=== PATIENT | female | born 1995 | race Caucasian/White ===

== ENCOUNTER 2022-04-10 12:28 | Emergency (ER) | payer MEDICARE, SELFPAY ==
--- NOTE | ~2022-04-10 | XR_ITS ---
EXAMINATION: XR hand RT min 3V DATE: 04/10/2022 13:01 INDICATION: Right hand pain. TECHNIQUE: 3 views of right hand were obtained. COMPARISON: None. FINDINGS: Bone alignment is normal. No fracture. Joint spaces are well maintained. IMPRESSION: 1. Normal right hand. Reviewed, dictated and finalized at location A. IMPRESSION: 1. Normal right hand.
[2022-04-10 12:38] VITALS: BP 119/58; PULSE 63; RESP 18; TEMP 37; O2SAT 98
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
== END 2022-04-10 13:30 | disposition home or self-care (01) ==
PROVIDERS: Emergency Provider Registered Nurse
DX: S60.221A Contusion of right hand, initial encounter (principal); X50.9XXA Other and unspecified overexertion or strenuous movements or postures, initial encounter; F17.210 Nicotine dependence, cigarettes, uncomplicated
CPT/HCPCS: 73130; 99213; G0463

== ENCOUNTER 2022-06-21 14:18 | Emergency (ER) | payer SELFPAY ==
[2022-06-21 14:24] VITALS: BP 131/71; PULSE 91; RESP 16; TEMP 37.1; O2SAT 99
[2022-06-21 14:29] VITALS: BP 131/71; PULSE 97; RESP 16; TEMP 36.9; O2SAT 99
--- NOTE | 2022-06-21 14:30 | ED.SKABFB ---
HPI - Skin/Abscess/Foreign Bdy General Chief complaint: Allergic Reaction Stated complaint: possible rash on back Time Seen by Provider: 06/21/22 14:29 Source: patient Mode of arrival: ambulatory Limitations: no limitations History of Present Illness HPI narrative: 27-year-old female presents to the ER with a 2 day history of -- maculopapular rash on her back which is itchy. -- healed laceration over the left wrist which came on after she cut herself with a glass piece complaint: rash Onset (ago): day(s) ( present for the past 2 days) Tetanus up to date: yes Location: back Severity: mild Quality: pruritic Relieving factors: none Exacerbating factors: none Associated symptoms: denies other symptoms Treatments prior to arrival: none Related Data Allergies Allergy/AdvReac Type Severity Reaction Status Date / Time No Known Allergies Allergy Verified 06/21/22 14:35 Review of Systems Review of Systems: All systems reviewed & are unremarkable except as noted in HPI and below Constitutional: Constitutional: Reports as per HPI and Reports no additional constitutional complaints Eyes: Eyes: Reports as per HPI and Reports no additional eye complaints ENT: Reports system reviewed and no additional complaints, except as documented and Reports as per HPI Cardiovascular: Cardiovascular: Reports as per HPI and Reports no additional cardiovascular complaints Respiratory: Respiratory: Reports as per HPI and Reports no additional respiratory complaints Gastrointestinal: Gastrointestinal: Reports as per HPI and Reports no additional gastrointestinal complaints Genitourinary: Genitourinary: Reports no additional female genitourinary complaints and Reports as per HPI Musculoskeletal: Musculoskeletal: Reports no additional musculoskeletal complaints and Reports as per HPI Integumentary/Breasts: Skin/Breast: Reports system reviewed and no additional complaints, except as docu and Reports as per HPI Comments: maculopapular rash on her back Neurologic: Reports system reviewed and no additional complaints, except as documented and Reports as per HPI Psychiatric: Psychiatric: Reports no additional psychiatric complaints and Reports as per HPI Endocrine: Endocrine: Reports no additional endocrine complaints and Reports as per HPI Hematologic/Lymphatic: Hematologic/Lymphatic: Reports no additional hematologic/lymphatic complaints and Reports as per HPI Allergic/Immunologic: Allergic/Immunologic: Reports no additional allergic/immunologic complaints and Reports as per HPI PMFSH Surgical History Surgical History History of cholecystectomy Social History Social History Smoking packs per day: 1.5 Smoking cigarettes per day: 30.0 Smoking status: Current every day smoker Alcohol intake: current Alcohol use details: social Substance use type: does not use Gender identity (if verbalized by the patient): Female Exam Const: General: no acute distress Nutritional Appearance: well nourished Orientation/consciousness: patient oriented x3 Limitations: no limitations HENMT: Head: normal to inspection Ears: external ears normal Face/Nose/Sinus: Normal external nose present Face and sinus: normal facial exam Mouth: Yes Normal oral and palatal mucosa present Throat: posterior oropharynx normal Eyes: Conjunctivae: conjunctivae normal Pupils: Equal, round and reactive pupils present Direct Ophthalmoscopy: no photophobia Neck: Neck: normal visual inspection, no lymphadenopathy and no meningeal signs Chest: Chest palpation & inspection: normal inspection of the chest Resp: Effort & Inspection: normal respiratory effort Auscultation: clear to auscultation bilaterally Cardio: Rate: regular rate Rhythm: regular rhythm GI: Auscultation: normal bowel sounds Other: no tenderness/ rigidity /rebound. : Gen
[2022-06-21] MEDS: methylPREDNISolone SOD SUCC 125 MG VIAL IM (14:44)
[2022-06-21 15:12] VITALS: BP 131/71; PULSE 97; RESP 16; TEMP 36.9; O2SAT 99
== END 2022-06-21 15:15 | disposition home or self-care (01) ==
PROVIDERS: Emergency Provider Internal Medicine Critical Care Medicine
DX: L25.9 Unspecified contact dermatitis, unspecified cause (principal)
CPT/HCPCS: 96372; 99283; J2930

== ENCOUNTER 2022-07-03 20:53 | Observation (INO) | payer MEDICAID, SELFPAY ==
[2022-07-03] VITALS (8 sets, daily range): BP systolic 133–162; BP diastolic 54–92; PULSE 96–150; RESP 10–24; TEMP 36.5–36.7; O2SAT 98–100; BMI 23.3
--- NOTE | ~2022-07-03 | XR_ITS ---
XR soft tissue neck DATE: 07/03/2022 21:54 INDICATION: Difficulty swallowing TECHNIQUE: AP and lateral views COMPARISON: None FINDINGS: Normal epiglottis. No prevertebral soft tissue swelling or emphysema. Normal airway includi ng normal caliber of the trachea. No radiopaque foreign body is noted. Cervical interspaces are preserved. IMPRESSION: Negative Reviewed, dictated and finalized at location A. IMPRESSION: Negative
--- NOTE | ~2022-07-03 | XR_ITS ---
XR chest 1V portable DATE: 07/03/2022 21:54 INDICATION: Shortness of breath TECHNIQUE: PA chest COMPARISON: None FINDINGS: Normal heart size. No hilar or mediastinal enlargement. No pulmonary infiltrate or consolid ation, pleural effusion or pulmonary vascular congestion or pneumothorax. IMPRESSION: No active cardiopulmonary disease Reviewed, dictated and finalized at location A.
[2022-07-03] MEDS: methylPREDNISolone ACETATE 40 MG/ML VIAL 80 MG IM (21:07)
[2022-07-03] MEDS: IPRATROPIUM 0.5 MG/ALBUTEROL SULFATE 2.5 MG AMPUL.NEB 3 ML INHALATION (21:08)
[2022-07-03] MEDS: EPINEPHrine HCL INJ 1 MG/ML AMPUL 0.3 MG SUB-Q (21:09)
[2022-07-03] MEDS: diphenhydrAMINE HCl INJ 50 MG/ML VIAL 25 MG IV PUSH (21:29)
--- NOTE | 2022-07-03 22:04 | ECG_ITS ---
Measurements Intervals Edwards Rate: 118 P: 60 NE: 166 QRS: 6 QRSD: 94 T: 32 QT: 278 QTc: 390 Interpretive Statements SINUS TACHYCARDIA BASELINE ARTIFACT POSSIBLE LEFT ATRIAL ENLARGEMENT NONSPECIFIC T-WAVE ABNORMALITY BORDERLINE ECG NO PREVIOUS ECG AVAILABLE FOR COMPARISON Electronically Signed On 07-04-2022 16:32:51 CDT by Rene Colon M.D.
[2022-07-03 22:05] LABS: Appearance Urine Clear (Clear); Bilirubin Urine Negative (Negative); Color Urine Yellow (Yellow); Glucose Urine UA Negative (Negative); Ketones Urine Negative (Negative); Leukocyte Esterase Ur Negative LEU/UL (Negative); Nitrate Urine Negative (Negative); Protein Urine Trace (Negative); Specific Grav Ur >= 1.030 (1.010-1.020); Urobilinogen Urine 0.2 mg/dL (0.2-1.0)
[2022-07-03 22:05] LABS: Basophils Absolute Auto 0.05 K/mm3 (0.00-0.10); Basophils Percent Auto 0.3 % (0.0-1.0); Eosinophils Absolute Auto 0.07 K/mm3 (0.02-0.50); Eosinophils Percent Auto 0.5 % (1.0-6.0); Hematocrit 47.4 % (35.0-49.0); Hemoglobin 15.6 g/dL (12.0-15.0); Immature Granulocyte Absolute 0.08 K/mm3 (0.00-0.00); Immature Granulocyte Percent A 0.6 % (0.0-0.0); Lymphocytes Absolute Auto 2.62 K/mm3 (1.10-4.50); Lymphocytes Percent Auto 18.1 % (18.0-42.0); Mean Corpuscular HGB Conc 32.9 g/dL (32.0-36.0); Mean Corpuscular Hemoglobin 30.5 pg (27.0-31.0); Mean Corpuscular Volume 92.8 fL (78.0-102.0); Mean Platelet Volume 9.8 fl (9.2-11.8); Monocytes Absolute Auto 1.14 K/mm3 (0.10-0.90); Monocytes Percent Auto 7.9 % (2.0-11.0); Neutrophils Absolute Auto 10.5 K/mm3 (1.7-7.2); Neutrophils Percent Auto 72.6 % (50.0-70.0); Platelet Count Result 310 K/mm3 (150-420); Red Blood Count 5.11 M/mm3 (4.20-5.40); Red Cell Distribution Width 12.8 % (11.6-14.4); White Blood Count 14.5 K/mm3 (4.8-10.8)
[2022-07-03] MEDS: SODIUM CHLORIDE 0.9% IV 1,000 ML 999 ML IV CONT (22:08)
--- NOTE | 2022-07-03 22:09 | PC.NURSE ---
Pt cooperative c straight cath to obtain urine for drug screen and UA. PT continues to talk nonstop and ramble about various subjects. Noted HR 130's, STach on monitor, pt continues to rub her face and scratch at her skin. ERP iin to reevaluate.
[2022-07-03 22:11] LABS: Amphetamine Screen Urine Negative (Negative); Barbiturate Screen Urine Negative (Negative); Benzodiazepines Screen Urine Negative (Negative); Cannabinoid Screen Urine Positive (Negative); Cocaine Screen Urine Negative (Negative); Methadone Screen Urine Negative (Negative); Opiate Screen Urine Negative (Negative); Phencyclidine Screen Urine Negative (Negative)
[2022-07-03 22:12] LABS: Add Urine Microscopic? YES; Bacteria Urine Trace /hpf; Blood Urine Trace-Intact (Negative); RBC Urine 0-2 /hpf (0-2); Squamous Epithelial Cell Urine Few /hpf (Few); WBC Urine 0-3 /hpf (0-3)
[2022-07-03 22:20] LABS: Alanine Aminotransferase 24 U/L (14-59); Alkaline Phosphatase 111 U/L (46-116); Anion Gap 5 mmol/L (8-16); Aspartate Amino Transferase 20 U/L (15-37); Bilirubin,Total 0.3 mg/dL (0.00-1.00); Blood Urea Nitrogen 9 mg/dL (7-18); Calcium 8.7 mg/dL (8.5-10.1); Carbon Dioxide 30 mmol/L (21-32); Chloride 102 mmol/L (98-108); Estimated CRCL calculation 72 ml/min; Estimated Glomerular Filt Rate > 60; Glucose 129 mg/dL (70-99); Osmolality Calculated 284 mOsm/kg (285-295); Potassium 2.9 mmol/L (3.5-5.1); Sodium 137 mmol/L (136-145); Total Protein 7.9 g/dL (6.4-8.2)
[2022-07-03] MEDS: dilTIAZem HCl INJ 25 MG/5 ML VIAL 10 MG IV PUSH (22:23)
--- NOTE | 2022-07-03 22:34 | ED.ALLEREA ---
HPI - Allergic Reaction General Chief complaint: Allergic Reaction Stated complaint: allergic reaction Time Seen by Provider: 07/03/22 20:57 Source: patient and family Mode of arrival: ambulatory Limitations: no limitations History of Present Illness HPI narrative: this is a 27-year-old female that presents with allergic reaction with a sensation of her throat closing off with difficulty swallowing that occurred earlier this afternoon, the patient has been treated with amoxicillin for a dental abscess, patient feels anxious with no nausea vomiting no audible wheezing does have occurred a urticarial rash over her chest and back. There is no chest pain no nausea vomiting no flank pain or dysuria, the patient has sensation of palpitations with an elevated heart rate, her O2 sats are 100% on room air she is afebrile no abdominal pain. MD complaint: allergic reaction, hives and facial swelling Onset (ago): hour(s) Exposure: medication Symptoms: rash, itching, facial swelling, difficulty swallowing, difficulty breathing and hoarseness Severity: severe Treatment prior to arrival: none Previous Allergic Reaction History: none Related Data Home Medications Medication Instructions Recorded Confirmed amoxicillin 500 mg capsule 500 mg PO TID 07/03/22 07/03/22 Allergies Allergy/AdvReac Type Severity Reaction Status Date / Time No Known Allergies Allergy Verified 06/21/22 14:35 Review of Systems Review of Systems: All systems reviewed & are unremarkable except as noted in HPI and below PMFSH Past Medical History Medical History Patient denies medical problems Surgical History Surgical History History of cholecystectomy Social History Social History Smoking packs per day: 1.5 Smoking cigarettes per day: 30.0 Smoking status: Current every day smoker Alcohol intake: current Alcohol use details: social Substance use type: does not use Gender identity (if verbalized by the patient): Female Exam Const: General: ill appearing Nutritional Appearance: well nourished Orientation/consciousness: patient oriented x3 Limitations: no limitations HENMT: Head: normal to inspection Ears: external ears normal Face/Nose/Sinus: Normal external nose present Teeth and gingiva: abnormal tooth and associated gingiva Eyes: Conjunctivae: conjunctivae normal Pupils: Equal, round and reactive pupils present EOM: EOMs intact bilaterally Direct Ophthalmoscopy: no photophobia Neck: Neck: normal visual inspection, no lymphadenopathy and no meningeal signs Chest: Chest palpation & inspection: normal inspection of the chest Resp: Effort & Inspection: normal respiratory effort Auscultation: clear to auscultation bilaterally Cardio: Rate: tachycardic Rhythm: regular rhythm GI: GI Palp: Yes Soft to palpation Auscultation: normal bowel sounds Urinary Catheter: Urinary Catheter: patent and draining Skin: General skin exam: normal color Other: urticarial rash Neuro: General: patient oriented x3, moves all extremities, no meningeal signs and no focal motor deficits Extrem: General: normal to inspection, no clubbing, cyanosis or edema and no pedal edema Psych: Affect: Anxious affect present Course Course Emergency Course: patient with sensation of throat closing off received epinephrine subcu and Depo-Medrol and Benadryl, the patient had elevated heart rate on per presentation to the emergency department, was being treated with amoxicillin for a dental abscess which is likely the cause of her allergic reaction. Reviewed x-ray and soft tissue x-ray of the neck which showed no acute findings, [place] a [place] [id number] and a potassium of 2.9, advised patient that she will need admission for IV antibiotic and to monitor her heart rate and
[2022-07-03] MEDS: KCL 20 MEQ/SW 100 ML 100 ML 50 MEQ IVPB (22:35)
--- NOTE | 2022-07-03 22:36 | PC.NURSE ---
ERp Dr Manrique speaking c pt about need for admission, call was placed by ERP to hospitalist MARTA Nolasco and she accepts for admit. Pt is not wanting to stay in hospital at this time due to child concerns, speaking c her brother and will decied if she wants to stay.
[2022-07-03] MEDS: CLINDAMYCIN 600 MG/D5W 50 ML 600 MG/50 ML PIGGYBACK 100 MG IVPB (22:45)
--- NOTE | 2022-07-03 22:59 | PC.NURSE ---
Pt decided p talking c her brother that she will stay for admission and treatment. Pt tearful at this time, reassurance provided and treatment plan of care explained to pt and her brother. VSS. Monitor showing ST.
[2022-07-03] MEDS: SODIUM CHLORIDE 0.9% IV 500 ML 999 ML IV CONT (23:12)
--- NOTE | 2022-07-03 23:18 | PC.NURSE ---
Pt to go to Rm 226, VSS, eating small bites of food at this time and sipping ice water.
[2022-07-03] MEDS: SODIUM CHLORIDE 0.9% IV 1,000 ML 100 ML IV CONT (23:42)
--- NOTE | 2022-07-03 23:45 | ADMGEN ---
This patient, Bere Panda, was admitted to 2nd Floor Room 226-2. Patient oriented to hospital policies and general routines including ID bracelet, bed and alarms, visiting hours, pain management, procedures, bathroom and other care routines, personal items, smoking policy, room service/diet, and visiting hours. Information on how to activate the Rapid Response Team has been discussed. Patient are encouraged to report perceived risks to care and to ask questions if they do not understand what they are told or what they should do.
[2022-07-04] VITALS: PULSE 104
[2022-07-04] MEDS: methylPREDNISolone SOD SUCC 40 MG VIAL IV PUSH ×2 (00:09→05:43)
[2022-07-04 00:59] VITALS: PULSE 104; RESP 20; O2SAT 98
--- NOTE | 2022-07-04 02:10 | PC.NURSE ---
José Luis Rodriguez notified of pt's unresponsivness and low SAO2; She requested Dr. Manrique examine patient at this time.
--- NOTE | 2022-07-04 02:14 | PC.NURSE ---
Dr. Manrique here to see patient; Orders received and noted.
[2022-07-04] MEDS: NALOXONE HCL 0.4 MG/ML VIAL IV PUSH (02:20)
--- NOTE | 2022-07-04 02:20 | PC.NURSE ---
Pt given Narcan 0.4 mg IVP as ordered; Pt responded to the medication within minutes of it being given.
[2022-07-04 02:25] LABS: Base Excess ABG -9.4 mmol/L (0-2); HCO3 ABG 20.1 mmol/L (23-29); Oxygen Content ABG 19.3 %vol (16.0-22.0); Oxygen Saturation ABG 97.5 % (95-97); PCO2 ABG 59.5 mmHg (35-45); PO2 ABG 125.7 mmHg (80-90); Total Hemoglobin 14.3 g/dL (12.0-18.0); pH ABG 7.15 (7.35-7.45)
--- NOTE | 2022-07-04 02:25 | PC.NURSE ---
José Luis Rodriguez NP, called to get an update on pt's condition; Report given and new orders were received and noted.
[2022-07-04 02:30] LABS: Device HIGH FLOW NASAL CANN; Modified Allen's Test Pass; Site Drawn RIGHT RADIAL
--- NOTE | 2022-07-04 02:37 | PC.NURSE ---
At 0155 credit underwriter entered pt room, pt not responding, VS: 128/73, 98.2, 108, SPO2 28% on room air. At 0157 O2 applied at high flow 10L per NC, SPO2 recovered to 93% quickly, then 98%. O2 titrated down, at 0211 SPO2 97% on room air. Pt remains unresponsive. Per ER MD, UA obtained per strait cath for drug screen at 0215, Per ER MD Narcan given IVP by Gaye SAUER at 0225. Pt became responsive shortly after receiving med. Alert to person, place and time. Pt states she took a blue and yellow capsule prior to coming to hospital, denies taking anything since arrival. At 0230 SPO2 at 99% on room air. Pt in stable condition at this time. Per ATM MANAGER may give Narcan PRN.
[2022-07-04 02:55] LABS: Amphetamine Screen Urine Negative (Negative); Barbiturate Screen Urine Negative (Negative); Benzodiazepines Screen Urine Negative (Negative); Cannabinoid Screen Urine Positive (Negative); Cocaine Screen Urine Negative (Negative); Methadone Screen Urine Negative (Negative); Opiate Screen Urine Negative (Negative); Phencyclidine Screen Urine Negative (Negative)
--- NOTE | 2022-07-04 03:18 | PC.NURSE ---
José Luis Rodriguez NP, notified of results of urine drug screen. No new orders at this time.
[2022-07-04 04:00] VITALS: BP 128/73; PULSE 116; PULSE 96; RESP 16; TEMP 36.8; O2SAT 99
[2022-07-04 05:36] LABS: Basophils Absolute Auto 0.02 K/mm3 (0.00-0.10); Basophils Percent Auto 0.1 % (0.0-1.0); Hematocrit 40.8 % (35.0-49.0); Hemoglobin 13.4 g/dL (12.0-15.0); Immature Granulocyte Absolute 0.08 K/mm3 (0.00-0.00); Immature Granulocyte Percent A 0.5 % (0.0-0.0); Lymphocytes Percent Auto 3.6 % (18.0-42.0); Mean Corpuscular HGB Conc 32.8 g/dL (32.0-36.0); Mean Corpuscular Hemoglobin 30.7 pg (27.0-31.0); Mean Corpuscular Volume 93.4 fL (78.0-102.0); Mean Platelet Volume 9.8 fl (9.2-11.8); Monocytes Absolute Auto 0.11 K/mm3 (0.10-0.90); Monocytes Percent Auto 0.7 % (2.0-11.0); Neutrophils Absolute Auto 15.8 K/mm3 (1.7-7.2); Neutrophils Percent Auto 95.1 % (50.0-70.0); Platelet Count Result 276 K/mm3 (150-420); Red Blood Count 4.37 M/mm3 (4.20-5.40); Red Cell Distribution Width 12.9 % (11.6-14.4); White Blood Count 16.6 K/mm3 (4.8-10.8)
--- NOTE | 2022-07-04 05:47 | PC.NURSE ---
Pt remains A&Ox3, some confusion noted when first waking that clears. States she still feels weird , VS: 98.4, 145/81, 89, 18, SPO2 at 98% RA. Pt able to eat ham sandwich and sherbert. No distress noted.
[2022-07-04 05:57] LABS: Alanine Aminotransferase 51 U/L (14-59); Albumin Level 3.4 g/dL (3.4-5.0); Alkaline Phosphatase 99 U/L (46-116); Anion Gap 7 mmol/L (8-16); Aspartate Amino Transferase 61 U/L (15-37); Bilirubin,Total 0.2 mg/dL (0.00-1.00); Blood Urea Nitrogen 7 mg/dL (7-18); Calcium 8.4 mg/dL (8.5-10.1); Carbon Dioxide 25 mmol/L (21-32); Chloride 107 mmol/L (98-108); Estimated CRCL calculation 80 ml/min; Estimated Glomerular Filt Rate > 60; Glucose 138 mg/dL (70-99); Magnesium 1.7 mg/dL (1.8-2.4); Osmolality Calculated 288 mOsm/kg (285-295); Potassium 4.1 mmol/L (3.5-5.1); Sodium 139 mmol/L (136-145); Total Protein 6.9 g/dL (6.4-8.2)
[2022-07-04 08:00] VITALS: BP 155/71; PULSE 73; PULSE 98; RESP 16; TEMP 37.4; O2SAT 99
[2022-07-04 10:18] VITALS: TEMP 37.4
[2022-07-04] MEDS: ACETAMINOPHEN 325 MG TABLET 650 MG PO (10:18)
--- NOTE | 2022-07-04 10:37 | PM.SD2 ---
Same Day Admit/Disch: HPI History of Present Illness Chief complaint: allergic reaction/tachycardia/dental abscess Narrative: Bere Panda is a 27-year-old female that presents with allergic reaction with a sensation of her throat closing off with difficulty swallowing that occurred earlier this afternoon, the patient has been treated with amoxicillin for a dental abscess, patient feels anxious with no nausea vomiting no audible wheezing does have occurred a urticarial rash over her chest and back.? There is no chest pain no nausea vomiting no flank pain or dysuria, the patient has sensation of palpitations with an elevated heart rate, her O2 sats are 100% on room air she is afebrile no abdominal pain. [facility] Past Medical History Medical History Patient denies medical problems Surgical History Surgical History History of cholecystectomy Social History Social History Smoking packs per day: 1 Smoking cigarettes per day: 20.0 Years smoked: 13 Smoking pack-years: 13.00 Smoking status: Current every day smoker Tobacco type: cigarettes Second hand tobacco smoke exposure: Yes Alcohol intake: current Drinks per week: 14 Alcohol use details: social Substance use: current Substance use type: marijuana Last use: 07/02/22 Has the Lack of Transportation Kept You From Medical Appointments or From Getting Medications?: No Within the Past 12 Months, Were You Worried Whether Your Food Would Run Out Before You Got Money to Buy More?: Never True What is Your Housing Situation Today?: I Have Housing Are You Worried That in the Next 2 Months, You May Not Have Your Own Housing to Live In?: No Do You Have Trouble Paying Your Heating Or Electricity Bill?: No Do You Have Trouble Paying For Medicines?: No Are You Currently Unemployed and Looking for Work?: No Highest Level of Education Completed: High School Diploma/GED Do You Have Trouble With Childcare or the Care of a Family Member?: No Gender identity (if verbalized by the patient): Female Spiritual care concerns: No Comments At time as signature, I have reviewed and agree with nursing past medical, social, surgical and family history. Please see nursing chart for further information. There is no relevant family history pertinent to the presenting complaint. Same Day Admit/Disch: Med Pre-admit Medications Home Medications Medication Instructions Recorded Confirmed Type cephalexin 500 mg tablet 500 mg PO Q12H #10 tabs 07/04/22 Rx cetirizine 10 mg capsule (Zyrtec) 10 mg PO DAILY #30 caps 07/04/22 Rx ibuprofen 600 mg tablet 600 mg PO TID PRN fever or pain 07/04/22 Rx #14 tabs prednisone 10 mg tablet 10 mg PO DIRECTED #18 tabs 07/04/22 Rx Exam Narrative: GENERAL:Well-appearing, well-nourished, and in no acute distress. HEAD:Normocephalic, atraumatic. EYES: PERRLA ENT: Nares clear, no rhinorrhea or epistaxis. Mucous membranes moist. CHEST: Clear to auscultation. No respiratory distress. HEART: Regular rate and rhythm. Normal peripheral pulses. ABDOMEN: Soft, nontender, nondistended, normal active bowel sounds. EXTREMITIES: Normal range of motion. No edema. SKIN: Warm, dry, no rash.Urticara NEURO: No focal deficits. Alert and oriented x3. DS: Data Data Completed and Pending Labs on day of discharge: Labs from last 24 hours 07/04/22 07/04/22 07/04/22 05:30 05:30 02:40 WBC 16.6 H RBC 4.37 Hgb 13.4 Hct 40.8 MCV 93.4 MCH 30.7 MCHC 32.8 RDW 12.9 Plt Count 276 MPV 9.8 Immature Gran % (Auto) 0.5 H Neut % (Auto) 95.1 H Lymph % (Auto) 3.6 L Darke % (Auto) 0.7 L Eos % (Auto) 0.0 L Baso % (Auto) 0.1 Lymph # (Auto) 0.60 L Darke # (Auto) 0.11 Eos # (Auto) 0.00 L Baso # (Auto) 0.02 Abs Immat Gran (aut
[2022-07-04] MEDS: LORATADINE 10 MG TABLET PO (11:02)
[2022-07-04 11:20] VITALS: TEMP 37.4
--- NOTE | 2022-07-04 11:39 | PC.NURSE ---
Pt discharged home with brother. Medication instructions given to pt & brother, PT instructed on S&S to come to the ER with. Pt given a list of MD's in the area and encouraged to get set up with a PCP. Pt instructed to call [facility] and have them set up an appointment at [facility]. Pt instructed to call medicaid and they will set up a ride to and from the dental appointment. Pt instructed NOT to take any medications that are not hers for any reason. Pt verbalized understanding. RN transported pt to family car via .
--- NOTE | 2022-07-07 11:39 | PC.NURSE ---
Pt states nurse did not go over instructions with her. Pt has no comments about her care. States she has been making calls this morning [facility].
== END 2022-07-04 11:25 | disposition home or self-care (01) ==
LOC: CHSED 22:44 → CHS2ND 23:20
PROVIDERS: Nurse Practitioner Family; Admitting Provider Internal Medicine; Emergency Provider Emergency Medicine; Visit Provider Internal Medicine
DX: L50.9 Urticaria, unspecified (principal); T78.40XA Allergy, unspecified, initial encounter; E87.6 Hypokalemia; R13.10 Dysphagia, unspecified; K02.9 Dental caries, unspecified; F17.210 Nicotine dependence, cigarettes, uncomplicated; F19.90 Other psychoactive substance use, unspecified, uncomplicated; R00.2 Palpitations; R53.1 Weakness; R53.83 Other fatigue
CPT/HCPCS: 36415; 36600; 51701; 70360; 71045; 80053; 80307; 81001; 82805; 83735; 85025; 93005; 94640; 96361; 96365; 96366; 96372; 96375; 96376; 97162; 99285; A9270; G0378; J0171; J1030; J1200; J2310; J2920; J3480; J7030; J7040

== ENCOUNTER 2022-07-15 16:56 | Emergency (ER) | payer MEDICAID, SELFPAY ==
[2022-07-15 17:00] VITALS: BP 150/76; PULSE 128; RESP 18; TEMP 36.5; O2SAT 98
[2022-07-15 17:09] VITALS: BP 150/76; PULSE 128; RESP 16; TEMP 36.5; O2SAT 99
--- NOTE | 2022-07-15 17:27 | ED.DENTAL ---
HPI - Dental/Oral General Chief complaint: Dental/Oral Stated complaint: tooth pain Time Seen by Provider: 07/15/22 16:58 Source: patient and RN notes reviewed Mode of arrival: ambulatory Limitations: no limitations History of Present Illness Complaint: tooth pain Location: Tooth # (32) Onset (ago): day(s) (2) Duration: constant Severity: moderate Severity scale (1-10): 6 Relieving factors: NSAIDs Exacerbating factors: chewing Context: poor dental care Treatment prior to arrival: none Related Data Allergies Allergy/AdvReac Type Severity Reaction Status Date / Time No Known Allergies Allergy Verified 07/15/22 17:14 Review of Systems Review of Systems: All systems reviewed & are unremarkable except as noted in HPI and below Constitutional: Constitutional: Reports no additional constitutional complaints Eyes: Eyes: Reports no additional eye complaints ENT: Reports system reviewed and no additional complaints, except as documented Cardiovascular: Cardiovascular: Reports no additional cardiovascular complaints Respiratory: Respiratory: Reports no additional respiratory complaints Gastrointestinal: Gastrointestinal: Reports no additional gastrointestinal complaints Genitourinary: Genitourinary: Reports no additional female genitourinary complaints Musculoskeletal: Musculoskeletal: Reports no additional musculoskeletal complaints Integumentary/Breasts: Skin/Breast: Reports system reviewed and no additional complaints, except as docu Neurologic: Reports system reviewed and no additional complaints, except as documented Psychiatric: Psychiatric: Reports no additional psychiatric complaints Endocrine: Endocrine: Reports no additional endocrine complaints Hematologic/Lymphatic: Hematologic/Lymphatic: Reports no additional hematologic/lymphatic complaints Allergic/Immunologic: Allergic/Immunologic: Reports no additional allergic/immunologic complaints [facility] Past Medical History Medical History Dental caries Patient denies medical problems Surgical History Surgical History History of cholecystectomy Social History Social History Smoking packs per day: 1 Smoking cigarettes per day: 20.0 Years smoked: 13 Smoking pack-years: 13.00 Smoking status: Current every day smoker Tobacco type: cigarettes Second hand tobacco smoke exposure: Yes Alcohol intake: current Drinks per week: 14 Alcohol use details: social Substance use: current Substance use type: marijuana Last use: 07/02/22 Lack of Transportation: No Lack of Food: Never True Current Housing: I Have Housing Concerned About Future Housing: No Difficulty Paying Gas/Electric Bills: No Difficulty Paying for Meds: No Currently Unemployed: No Education: High School Diploma/GED Difficulty w/ Childcare or Family Care: No Gender identity (if verbalized by the patient): Female Spiritual care concerns: No Exam Const: General: no acute distress and well nourished Nutritional Appearance: well nourished Orientation/consciousness: patient oriented x3 Limitations: no limitations HENMT: Head: normal to inspection Ears: external ears normal, TM's normal bilaterally and EAC's normal Face/Nose/Sinus: Normal external nose present, Normal nares present, normal facial exam and sinuses nontender Face and sinus: normal facial exam and sinuses nontender Mouth: Yes Normal oral and palatal mucosa present and Yes moist mucous membranes Teeth and gingiva: dentition normal (minimally tender tooth # 32, With no acute gum redness or swelling.) Throat: posterior oropharynx normal Eyes: Conjunctivae: conjunctivae normal Pupils: Equal, round and reactive pupils present EOM: EOMs intact bilaterally Neck: Neck: normal visual inspection, no lymphadenopathy and no
[2022-07-15] MEDS: IBUPROFEN 400 MG TABLET 800 MG PO (17:33)
[2022-07-15 17:51] VITALS: BP 150/76; PULSE 120; RESP 16; TEMP 36.5; O2SAT 99
== END 2022-07-15 17:55 | disposition home or self-care (01) ==
PROVIDERS: Emergency Provider Emergency Medicine
DX: K08.89 Other specified disorders of teeth and supporting structures (principal); K04.7 Periapical abscess without sinus
CPT/HCPCS: 99283; A9270

== ENCOUNTER 2022-08-10 09:10 | Emergency (ER) | payer MEDICAID, SELFPAY ==
[2022-08-10] VITALS (11 sets, daily range): BP systolic 129–151; BP diastolic 78–87; PULSE 95–128; RESP 13–20; TEMP 36.8–36.9; O2SAT 96–99
--- NOTE | ~2022-08-10 | CT_ITS ---
EXAMINATION: CT BRAIN W/O DATE: 08/10/2022 11:05 INDICATION: Syncope. Meth use. Confusion. TECHNIQUE: Computed tomography (CT) of the head was performed without intravenous contrast. The dose- length product was 605.33 mGy-cm. Automated exposure control and iterative reconstruction technique w ere employed. COMPARISON: No prior studies for comparison. FINDINGS: Normal brain parenchymal volume for age. Normal hernández-white differentiation. No acute intrac ranial hemorrhage, infarction, mass or mass effect. No ventriculomegaly or midline shift. Midline sagittal images demonstrate a normal corpus callosum, c raniovertebral junction and sella turcica. Basilar cisterns are patent. Paranasal sinuses and mastoids are pneumatized. No depressed skull fractures. IMPRESSION: 1. No acute intracranial abnormality. Reviewed, dictated and finalized at location A. COVERER
--- NOTE | ~2022-08-10 | XR_ITS ---
EXAMINATION: XR chest 1V portable 08/10/2022 11:04 INDICATION: Shortness of breath and chest pain PROCEDURE: AP portable chest COMPARISON: 07/03/2022 FINDINGS: The lungs are clear. The cardiomediastinal silhouette is within normal limits. There are no pleural effusions. There is no pneumothorax suspected. There is levoscoliosis of the thoracolumb ar spine, possibly positional. IMPRESSION: 1: NO ACUTE CARDIOPULMONARY DISEASE. Reviewed, dictated and finalized at location A. Y LEVEL ACCOUNT MANAGER
--- NOTE | 2022-08-10 09:34 | ECG_ITS ---
Measurements Intervals [place] Rate: 113 P: 63 RI: 154 QRS: -32 QRSD: 90 T: 38 QT: 335 QTc: 460 Interpretive Statements SINUS TACHYCARDIA BASELINE ARTIFACT POSSIBLE LEFT ATRIAL ENLARGEMENT LEFT AXIS DEVIATION [QRS AXIS < -30] BORDERLINE ECG COMPARED TO ECG 07/03/2022 22:04:48 LEFT-AXIS DEVIATION NOW PRESENT Electronically Signed On 08-10-2022 13:29:24 SENIOR PLANNER by Rene Colon M.D.
[2022-08-10] MEDS: THIAMINE HCL INJ 100 MG, FOLIC ACID 1 MG, MULTIVITAMINS-12 INJ 10 ML, MAGNESIUM SULFATE... 1000 MG IV CONT (10:07)
[2022-08-10 10:12] LABS: Basophils Absolute Auto 0.05 K/mm3 (0.00-0.10); Basophils Percent Auto 0.4 % (0.0-1.0); Eosinophils Absolute Auto 0.04 K/mm3 (0.02-0.50); Eosinophils Percent Auto 0.3 % (1.0-6.0); Hematocrit 40.2 % (35.0-49.0); Hemoglobin 14.2 g/dL (12.0-15.0); Immature Granulocyte Absolute 0.05 K/mm3 (0.00-0.00); Immature Granulocyte Percent A 0.4 % (0.0-0.0); Lymphocytes Absolute Auto 1.29 K/mm3 (1.10-4.50); Lymphocytes Percent Auto 9.4 % (18.0-42.0); Mean Corpuscular HGB Conc 35.3 g/dL (32.0-36.0); Mean Corpuscular Hemoglobin 31.5 pg (27.0-31.0); Mean Corpuscular Volume 89.1 fL (78.0-102.0); Monocytes Absolute Auto 1.25 K/mm3 (0.10-0.90); Monocytes Percent Auto 9.1 % (2.0-11.0); Neutrophils Percent Auto 80.4 % (50.0-70.0); Platelet Count Result 303 K/mm3 (150-420); Red Blood Count 4.51 M/mm3 (4.20-5.40); White Blood Count 13.7 K/mm3 (4.8-10.8)
--- NOTE | 2022-08-10 10:25 | PC.NURSE ---
pt up with assistance to bathroom, bizarre behavior continues.
[2022-08-10 10:27] LABS: Bilirubin Urine 2+ (Negative); Blood Urine 3+ (Negative); Glucose Urine UA Negative (Negative); Ketones Urine 1+ (Negative); Leukocyte Esterase Ur Negative (Negative); Nitrate Urine Negative (Negative); Protein Urine 3+ (Negative); Specific Grav Ur >= 1.030 (1.010-1.020)
[2022-08-10 10:30] LABS: Lactic Acid Reflex 1.2 mmol/L (0.4-2.0)
[2022-08-10 10:37] LABS: Add Urine Microscopic? YES; Amorphous Sediment Urine Few; Appearance Urine Cloudy (Clear); Bacteria Urine 1+ /hpf; Color Urine Dark Yellow (Yellow); Mucus Urine Heavy /lpf; RBC Urine >75 /hpf (0-2); Squamous Epithelial Cell Urine Many /hpf (Few)
[2022-08-10 10:39] LABS: Alanine Aminotransferase 32 U/L (14-59); Albumin Level 3.8 g/dL (3.4-5.0); Alkaline Phosphatase 117 U/L (46-116); Amphetamine Screen Urine Positive (Negative); Anion Gap 11 mmol/L (8-16); Aspartate Amino Transferase 29 U/L (15-37); Barbiturate Screen Urine Negative (Negative); Benzodiazepines Screen Urine Negative (Negative); Bilirubin,Total 0.7 mg/dL (0.00-1.00); Blood Urea Nitrogen 10 mg/dL (7-18); Calcium 9.1 mg/dL (8.5-10.1); Cannabinoid Screen Urine Negative (Negative); Carbon Dioxide 25 mmol/L (21-32); Chloride 101 mmol/L (98-108); Cocaine Screen Urine Negative (Negative); Creatine Kinase 354 U/L (26-192); Estimated CRCL calculation 80 ml/min; Estimated Glomerular Filt Rate > 60; Glucose 114 mg/dL (70-99); Methadone Screen Urine Negative (Negative); Opiate Screen Urine Negative (Negative); Osmolality Calculated 284 mOsm/kg (285-295); Phencyclidine Screen Urine Negative (Negative); Pregnancy On Board Control Positive; Sodium 137 mmol/L (136-145); Total Protein 7.6 g/dL (6.4-8.2); Troponin I 21.4 ng/L (0.00-60.4); Urine Pregnancy Test Negative
[2022-08-10 10:40] LABS: Ethanol < 3 mg/dL (0-6)
[2022-08-10 10:49] LABS: Influenza A QL RT-PCR Negative (Negative); Influenza B QL RT-PCR Negative (Negative); SARS-CoV-2 RNA PCR Negative (Negative)
[2022-08-10 10:51] LABS: RSV RNA, RT-PCR Negative (Negative)
--- NOTE | 2022-08-10 11:21 | PC.NURSE ---
pt continues with bizarre behavior, statements. my hand is iced over. my body has white spots all over . no spots noted. pt does have sores on legs, arms. multiple bruising noted to arms , hips , legs. reassurance given to pt. explained behavior is drug related.
[2022-08-10] MEDS: POTASSIUM CHLORIDE 20 MEQ TABLET 40 MEQ PO (11:45)
--- NOTE | 2022-08-10 12:06 | ED.GENADULT ---
HPI - General Adult General Chief complaint: Unspecified Stated complaint: allergic reaction to drug meth Time Seen by Provider: 08/10/22 09:12 Source: patient, family and RN notes reviewed Mode of arrival: ambulatory Limitations: no limitations History of Present Illness complaint: pt felt tremulous with multiple imaginary skin lesions Onset (ago): day(s) (1) Location: upper extremity and lower extremity Radiation: non-radiation Severity: mild Quality: burning Pain Consistency: intermittent Relieving factors: none Exacerbating factors: none Associated symptoms: syncope (one day ago. no LOC 08/10, no acute chest pain or SOB. ) Treatments prior to arrival: none Related Data Allergies Allergy/AdvReac Type Severity Reaction Status Date / Time No Known Allergies Allergy Verified 07/15/22 17:14 Review of Systems Review of Systems: All systems reviewed & are unremarkable except as noted in HPI and below Constitutional: Constitutional: Reports no additional constitutional complaints Eyes: Eyes: Reports no additional eye complaints ENT: Reports system reviewed and no additional complaints, except as documented Cardiovascular: Cardiovascular: Reports no additional cardiovascular complaints Respiratory: Respiratory: Reports no additional respiratory complaints Gastrointestinal: Gastrointestinal: Reports no additional gastrointestinal complaints Genitourinary: Genitourinary: Reports no additional female genitourinary complaints Musculoskeletal: Musculoskeletal: Reports no additional musculoskeletal complaints Integumentary/Breasts: Skin/Breast: Reports system reviewed and no additional complaints, except as docu Neurologic: Reports system reviewed and no additional complaints, except as documented and Reports other (mild occasional tremulousness) Psychiatric: Psychiatric: Reports no additional psychiatric complaints Endocrine: Endocrine: Reports no additional endocrine complaints Hematologic/Lymphatic: Hematologic/Lymphatic: Reports no additional hematologic/lymphatic complaints Allergic/Immunologic: Allergic/Immunologic: Reports no additional allergic/immunologic complaints [facility] Past Medical History Medical History Amphetamine abuse Dental caries Hypokalemia Patient denies medical problems UTI (urinary tract infection) Surgical History Surgical History History of cholecystectomy Social History Social History Smoking packs per day: 1 Smoking cigarettes per day: 20.0 Years smoked: 13 Smoking pack-years: 13.00 Smoking status: Current every day smoker Tobacco type: cigarettes Second hand tobacco smoke exposure: Yes Alcohol intake: current Drinks per week: 14 Alcohol use details: social Substance use: current Substance use type: methamphetamine Last use: 07/02/22 Lack of Transportation: No Lack of Food: Never True Current Housing: I Have Housing Concerned About Future Housing: No Difficulty Paying Gas/Electric Bills: No Difficulty Paying for Meds: No Currently Unemployed: No Education: High School Diploma/GED Difficulty w/ Childcare or Family Care: No Gender identity (if verbalized by the patient): Female Spiritual care concerns: No Exam Const: General: no acute distress and well nourished Nutritional Appearance: thin Orientation/consciousness: patient oriented x3 Limitations: no limitations HENMT: Head: normal to inspection Ears: external ears normal, TM's normal bilaterally and EAC's normal Face/Nose/Sinus: Normal external nose present, Normal nares present, normal facial exam and sinuses nontender Face and sinus: normal facial exam and sinuses nontender Mouth: Yes Normal oral and palatal mucosa present and Yes moist mucous membranes Teeth and gingiva: dentition normal Throat: p
--- NOTE | 2022-08-10 12:26 | PC.NURSE ---
primary care provider referral list given along with pamphlet information for substance abuse also given to pt and boyfriend. voiced understanding for all discharge instructions, rx, information given.
== END 2022-08-10 12:29 | disposition home or self-care (01) ==
PROVIDERS: Emergency Provider Emergency Medicine
DX: F15.10 Other stimulant abuse, uncomplicated (principal); N39.0 Urinary tract infection, site not specified; E87.6 Hypokalemia; F17.200 Nicotine dependence, unspecified, uncomplicated; Z20.822 Contact with and (suspected) exposure to COVID-19
CPT/HCPCS: 36415; 70450; 71045; 80053; 80307; 81001; 81025; 82550; 83605; 84484; 85025; 87637; 93005; 96365; 96367; 99284; A9270; J0696; J3411; J3475; J7042

== ENCOUNTER 2022-12-11 15:35 | Emergency (ER) | payer MEDICAID, SELFPAY ==
[2022-12-11 15:35] VITALS: BP 134/79; PULSE 100; RESP 18; TEMP 36.4; O2SAT 98
[2022-12-11 15:59] LABS: Appearance Urine Clear (Clear); Bilirubin Urine Negative (Negative); Blood Urine Negative (Negative); Color Urine Light Yellow (Yellow); Glucose Urine UA Negative (Negative); Ketones Urine Negative (Negative); Leukocyte Esterase Ur Negative (Negative); Nitrate Urine Negative (Negative); Protein Urine Negative (Negative); Urobilinogen Urine 0.2 mg/dL (0.2-1.0); pH Urine 6.5 (5.0-8.0)
--- NOTE | 2022-12-11 16:00 | PC.NURSE ---
CONSENT FOR HIV TESTING OBTAINED.
--- NOTE | 2022-12-11 16:33 | ED.GENADULT ---
HPI - General Adult General Chief complaint: Unspecified Stated complaint: STD CHECK Time Seen by Provider: 12/11/22 15:39 Source: patient History of Present Illness HPI narrative: this is a 27-year-old female that tested positive for at home and presents to the emergency department wanting to confirm that she is , currently denies any symptoms there is no abdominal pain no no vaginal bleeding no fever chills no chest pain or shortness of breath no vaginal discharge. Patient also is concerned that her boyfriend has passed along an STD and will check an HIV GNC and RPR. Related Data Home Medications Medication Instructions Recorded Confirmed No Home Medications 12/11/22 12/11/22 Allergies Allergy/AdvReac Type Severity Reaction Status Date / Time No Known Allergies Allergy Verified 12/11/22 15:41 Review of Systems Review of Systems: All systems reviewed & are unremarkable except as noted in HPI and below PMFSH Past Medical History Medical History Amphetamine abuse Dental caries Hypokalemia Patient denies medical problems UTI (urinary tract infection) Surgical History Surgical History History of cholecystectomy Social History Social History Smoking packs per day: 1 Smoking cigarettes per day: 20.0 Years smoked: 13 Smoking pack-years: 13.00 Smoking status: Current every day smoker Tobacco type: cigarettes Second hand tobacco smoke exposure: Yes Alcohol intake: current Drinks per week: 14 Alcohol use details: social Substance use: current Substance use type: methamphetamine Last use: 07/02/22 Lack of Transportation: No Lack of Food: Never True Current Housing: I Have Housing Concerned About Future Housing: No Difficulty Paying Gas/Electric Bills: No Difficulty Paying for Meds: No Currently Unemployed: No Education: High School Diploma/GED Difficulty w/ Childcare or Family Care: No Living arrangements: with family Gender identity (if verbalized by the patient): Female Spiritual care concerns: No Exam Const: General: cooperative, healthy appearing, comfortable, no acute distress and well developed HENMT: Head: normal to inspection Eyes: General: appearance normal, both eyes and all related structures Neck: Neck: normal visual inspection Chest: Chest palpation & inspection: normal inspection of the chest and normal palpation of entire chest wall Resp: Effort & Inspection: normal respiratory effort Auscultation: clear to auscultation bilaterally Cardio: Jugular venous distension: no JVD Palpation: normal PMI Rate: regular rate Rhythm: regular rhythm GI: Inspection: normal to inspection : General: Yes bimanual renal exam normal bilaterally Back/Spine/Pelvis: Back: no CVA tenderness Skin: General skin exam: normal color and no rashes or lesions noted Neuro: General: oriented to person, oriented to place and oriented to time Extrem: General: normal to inspection, full ROM and capillary refill normal Psych: Appearance: grossly normal Mental Status: mental status grossly normal Course Course Emergency Course: Labs reviewed with patient, HIV negative and quantitative beta HCG was positive and determined to be about 4 weeks this was relayed to the patient and advised to follow with some suture grimes. Vital Signs Vital signs: Vital Signs Temperature 36.4 C 12/11/22 15:35 Pulse Rate 100 12/11/22 15:35 Respiratory Rate 18 12/11/22 15:35 Blood Pressure 134/79 12/11/22 15:35 Pulse Oximetry 98 12/11/22 15:35 Oxygen Delivery Room Air 12/11/22 15:35 Temperature 36.4 C 12/11/22 15:35 Pulse Rate 100 12/11/22 15:35 Respiratory Rate 18 12/11/22 15:35 Blood Pressure 134/79 12/11/22 15:35 Pulse Oximetry 98 04/0
[2022-12-11 16:38] LABS: HIV 1 P24 AG Negative (Negative); HIV 1/2 AB Negative (Negative)
--- NOTE | 2022-12-11 16:49 | PC.NURSE ---
PT REPORTS SHE NEEDS TO LEAVE, SHE HAS SOMEWHERE SHE NEEDS TO BE. NAD NOTED. ERP IS AWARE.
[2022-12-11 16:51] LABS: Add Urine Microscopic? NO
[2022-12-11 16:55] VITALS: BP 128/78; PULSE 88; RESP 18; O2SAT 100
[2022-12-14 13:36] LABS: RPR Screen Non-Reactive (Non-Reactive)
--- NOTE | 2022-12-16 12:36 | PC.NURSE ---
FINAL RESULTS OF C TRACHOMATIS RNA NOT DETECTED FINAL RESULTS OF N GONORRHOEAE RNA NOT DETECTED NO ACTION NEEDED.
== END 2022-12-11 16:55 | disposition home or self-care (01) ==
PROVIDERS: Emergency Provider Emergency Medicine
DX: Z32.01 Encounter for pregnancy test, result positive (principal); O99.331 Smoking (tobacco) complicating pregnancy, first trimester; F17.210 Nicotine dependence, cigarettes, uncomplicated; Z3A.01 Less than 8 weeks gestation of pregnancy
CPT/HCPCS: 36415; 81003; 84702; 86592; 86703; 87491; 87591; 99283

== ENCOUNTER 2023-01-28 13:08 | Outpatient (CLI) | payer MEDICAID, SELFPAY ==
--- NOTE | ~2023-01-28 | US_ITS ---
Pelvic ultrasound. Clinical History: First trimester , establish dates and viability Technique: Realtime transabdominal and transvaginal scanning of the pelvis was performed. Color flow Doppler and Doppler spectral analysis were performed. Findings: The uterus is anteverted, and contains an intrauterine gestation. [place]-rump length of 4.2 cm corresponds to an estimated gestational age of 11 weeks 1 day. heart rate is 178 bpm. Probab le moderate subchorionic hemorrhage measuring 3.5 x 2.3 cm The right ovary measures 2.4 x 1.8 x 3.2 cm. No significant right ovarian or adnexal mass is seen. The left ovary measures 2.3 x 1.7 x 2.5 cm. No significant left ovarian or adnexal mass is seen. There is no evidence of free fluid in the cul de sac. Impression: Live intrauterine gestation with estimated gestational age of 11 weeks 1 day. heart rate is 178 bpm. Probable moderate subchorionic hemorrhage, as detailed above. Reviewed, dictated and finalized at location M. Impression: Live intrauterine gestation with estimated gestational age of 11 weeks 1 day. F etal heart rate is 178 bpm. Probable moderate subchorionic hemorrhage, as detailed above.
== END 2023-01-28 13:09 | disposition home or self-care (01) ==
LOC: CHSIMG 13:09
PROVIDERS: PCP Registered Nurse; Visit Provider Registered Nurse
DX: Z34.90 Encounter for supervision of normal pregnancy, unspecified, unspecified trimester (principal); Z3A.11 11 weeks gestation of pregnancy
CPT/HCPCS: 76801; 76817

== ENCOUNTER 2023-02-05 12:49 | Outpatient (RCR) | payer MEDICAID, SELFPAY ==
[2023-02-05 13:52] LABS: Basophils Percent Auto 0.4 % (0.2-1.2); Eosinophils Absolute Auto 0.1 K/mm3 (0-0.3); Eosinophils Percent Auto 1.2 % (0-4.4); Hematocrit 38.5 % (37.0-47.0); Hemoglobin 13.4 g/dL (12.0-15.0); Immature Granulocyte Absolute 0.02 K/mm3 (0.00-0.031); Immature Granulocyte Percent A 0.3 % (0-0.5); Lymphocytes Absolute Auto 2.02 K/mm3 (0.9-3.2); Lymphocytes Percent Auto 27.9 % (18.3-44.2); Mean Corpuscular HGB Conc 34.8 g/dl (32-36); Mean Corpuscular Hemoglobin 32.1 pg (26-34); Mean Corpuscular Volume 92.3 fl (80-100); Mean Platelet Volume 9.8 fl (7.4-10.4); Monocytes Absolute Auto 0.6 K/mm3 (0.1-0.6); Monocytes Percent Auto 8.6 % (2.6-8.5); Neutrophils Absolute Auto 4.5 K/mm3 (1.3-6.7); Neutrophils Percent Auto 61.6 % (45.5-73.1); Platelet Count Result 252 k/mm3 (150-375); Red Blood Count 4.17 M/mm3 (4.2-5.4); Red Cell Distribution Width 12.9 % (11.5-14.5); White Blood Count 7.3 K/mm3 (4.5-10.0)
[2023-02-05 13:55] LABS: Appearance Urine Clear (Clear); Bilirubin Urine Negative (Negative); Blood Urine Negative (Negative); Color Urine Yellow (Yellow); Glucose Urine UA Negative (Negative); Ketones Urine Negative (Negative); Leukocyte Esterase Ur Negative LEU/UL (NEGATIVE); Nitrate Urine Negative (Negative); Protein Urine Negative (Negative); Specific Grav Ur 1.023 (1.001-1.035); Urobilinogen Urine 0.2 mg/dL (<2.0)
[2023-02-05 13:57] LABS: Add Urine Microscopic? NO
[2023-02-05 14:24] LABS: Vitamin D 25 Hydroxy 33.3 ng/mL
[2023-02-05 14:34] LABS: Thyroid Stimulating Hormone 0.259 uIU/mL (0.465-4.680)
[2023-02-05 14:40] LABS: Hepatitis B Surface Antigen Negative (Negative); Rubella IgG Antibody 8.2 IU/ML
[2023-02-05 14:45] LABS: HIV 1/2 Ab P24 Ag Result Negative (Negative)
[2023-02-05 14:55] LABS: Hepatitis C Virus Antibody Negative (Negative)
[2023-02-05] MEDS: RHO(D) IMMUNE GLOBULIN 300 MCG/2 ML SYRINGE IM (16:57)
[2023-02-09 13:16] LABS: Rapid Plasma Reagin Non-Reactive (NonReactive)
[2023-02-11 14:30] LABS: Hematocrit 39.5 % (35.0-45.0); Hemoglobin 13.2 g/dL (11.7-15.5); MCH 31.4 pg (27.0-33.0); MCV 93.8 fL (80.0-100.0); RDW 12.5 % (11.0-15.0); Red Blood Cell Count 4.21 Mill/uL (3.80-5.10)
[2023-02-17 13:43] LABS: CF Result NEGATIVE (NEGATIVE); Ethnicity CAUCASIAN
== END 2023-05-06 23:59 | disposition home or self-care (01) ==
LOC: ANHLAB 12:49
PROVIDERS: PCP Registered Nurse; Visit Provider Obstetrics & Gynecology
DX: Z11.4 Encounter for screening for human immunodeficiency virus [HIV] (principal); Z29.13 Encounter for prophylactic Rho(D) immune globulin; O36.0190 Maternal care for anti-D [Rh] antibodies, unspecified trimester, not applicable or unspecified; Z3A.00 Weeks of gestation of pregnancy not specified
CPT/HCPCS: 36415; 81003; 81220; 81243; 82306; 83021; 84443; 85025; 85461; 86592; 86703; 86762; 86787; 86803; 86850; 86900; 86901; 87086; 87340; 90384; 96372; G0432; J2790

== ENCOUNTER 2023-02-10 10:07 | Outpatient (CLI) | payer MEDICAID, SELFPAY ==
--- NOTE | ~2023-02-10 | US_ITS ---
Pelvic ultrasound. Clinical History: Abnormal sonographic findings on screening, follow-up subchorionic hemorr jimmie COMPARISON: 01/28/2023 Technique: Realtime transabdominal scanning of the pelvis was performed. Color flow Doppler and Doppl er spectral analysis were performed. Findings: The uterus is anteverted, and contains an intrauterine gestation. [place]-rump length of 6.9 cm corresponds to an estimated gestational age of 13 weeks 1 day. heart rate is 154 bpm. Placen ta is anteriorly located. No subchorionic hemorrhage visible. Neither ovary seen. No adnexal mass seen. There is no evidence of free fluid in the cul de sac. Impression: Live intrauterine gestation with estimated gestational age of 13 weeks 1 day. heart rate is 154 beats per minute. No subchorionic hemorrhage identified. Reviewed, dictated and finalized at location . Impression: Live intrauterine gestation with estimated gestational age of 13 weeks 1 day. F etal heart rate is 154 beats per minute. No subchorionic hemorrhage identified.
[2023-02-10 10:57] LABS: Free T4 Free Thyroxine 0.99 ng/dL (0.76-1.46)
== END 2023-02-10 10:08 | disposition home or self-care (01) ==
LOC: CHSIMG 10:09
PROVIDERS: Visit Provider Obstetrics & Gynecology
DX: O28.3 Abnormal ultrasonic finding on antenatal screening of mother (principal); O26.851 Spotting complicating pregnancy, first trimester; R79.89 Other specified abnormal findings of blood chemistry; Z3A.13 13 weeks gestation of pregnancy; R53.83 Other fatigue
CPT/HCPCS: 36415; 76801; 84439

== ENCOUNTER 2023-10-12 19:12 | Emergency (ER) | payer MEDICAID, SELFPAY ==
[2023-10-12 19:16] VITALS: BP 147/73; PULSE 88; RESP 20; TEMP 36.8; O2SAT 100
--- NOTE | 2023-10-12 19:31 | ED.GENADULT ---
HPI - General Adult General Chief complaint: Unspecified Stated complaint: poss hemorroids Source: patient, RN notes reviewed and old records reviewed Mode of arrival: ambulatory Limitations: no limitations History of Present Illness HPI narrative: 28-YEAR-OLD FEMALE PRESENTS WITH A TO [facility] CARE WITH COMPLAINT OF HEMORRHOIDS THAT STARTED SEVERAL WEEKS AGO PATIENT STATES THEY SEEM TO ACT UP WHEN SHE DRINKS ALCOHOL. PATIENT HAS NOT TRIED ANYTHING [id number] TO TREAT SYMPTOMS. Related Data Allergies Allergy/AdvReac Type Severity Reaction Status Date / Time No Known Allergies Allergy Verified 03/17/23 14:43 Review of Systems Constitutional: Constitutional: Reports no additional constitutional complaints, Denies body ache(s), Denies chills, Denies fatigue, Denies fever(s) and Denies headache(s) Eyes: Eyes: Reports no additional eye complaints and Denies blurry vision ENT: Reports system reviewed and no additional complaints, except as documented, Denies vertigo, Denies dizziness, Denies ear discharge, Denies otalgia, Denies facial pain, Denies headache(s), Denies nasal congestion, Denies nasal discharge, Denies sinus pain, Denies sinus pressure and Denies sore throat Cardiovascular: Cardiovascular: Reports no additional cardiovascular complaints, Denies chest pain, Denies chest pain at rest, Denies rapid heart rate and Denies dyspnea Respiratory: Respiratory: Reports no additional respiratory complaints, Denies chest congestion, Denies cough, Denies pain on inspiration, Denies pain with cough and Denies dyspnea Gastrointestinal: Gastrointestinal: Denies abdominal pain, Denies diarrhea, Denies nausea, Denies vomiting and Reports other ( HEMORRHOIDS) Integumentary/Breasts: Skin/Breast: Denies rash Neurologic: Reports system reviewed and no additional complaints, except as documented, Denies vertigo, Denies dizziness and Denies headache(s) Endocrine: Endocrine: Denies fatigue PMFSH Past Medical History Medical History Amphetamine abuse Anxiety ASCUS with positive high risk HPV Dental caries History of miscarriage x1 2018 History of vaginal delivery x5 Hypertension Hypokalemia Migraine PTSD (post-traumatic stress disorder) UTI (urinary tract infection) Surgical History Surgical History H/O dilation and curettage History of cholecystectomy Social History Social History Years smoked: 13 Smoking status: Current every day smoker Tobacco type: cigarettes and e-cigarettes/vaping Second hand tobacco smoke exposure: Yes Additional smoking assessment comments: She smoke one cigarette a day and vapes Alcohol intake: former Drinks per week: 14 Alcohol use details: Not since Substance use: current Substance use type: methamphetamine Last use: 07/02/22 Lack of Transportation: No Lack of Food: Never True Current Housing: I Have Housing Concerned About Future Housing: No Difficulty Paying Gas/Electric Bills: No Difficulty Paying for Meds: YES Currently Unemployed: No Education: High School Diploma/GED Difficulty w/ Childcare or Family Care: No Living arrangements: with family Occupation/Education: other Additional occupation/education comments: disabled Gender identity (if verbalized by the patient): Female Sexual Orientation (if Verbalized by the Patient): Straight or Heterosexual Spiritual care concerns: No Comments At the time of my signature, I reviewed and agree with the nursing past medical, surgical, social, and family history. There is no relevant family history pertinent to the patient complaint. Exam Const: General: cooperative, healthy appearing, no acute distress and well nourished Nutritional Appearance: well nourished Orientation/consciousness: patient oriented x3 Limitati
== END 2023-10-12 19:42 | disposition home or self-care (01) ==
PROVIDERS: Emergency Provider Registered Nurse
DX: K64.0 First degree hemorrhoids (principal); F17.210 Nicotine dependence, cigarettes, uncomplicated; F17.290 Nicotine dependence, other tobacco product, uncomplicated; I10 Essential (primary) hypertension
CPT/HCPCS: 99213; G0463